=== PATIENT | female | born 1975 | race African-American/Black ===

== ENCOUNTER 2019-07-07 18:49 | Emergency (ER) | payer OTHER ==
[~2019-07-07] VITALS: Ht 157.5 cm; Wt 121.6 kg
[2019-07-07] MEDS ORDERED: ATACAND32 MG (19:03)
[2019-07-07] MEDS ORDERED: ATACAND32 MG PO (20:13)
[2019-07-07] MEDS ORDERED: MAXITROL EYE DRO5 ML OP (20:13)
== END 2019-07-07 21:24 | disposition home or self-care (01) ==
LOC: ER 18:49
DX: H10.13 Acute atopic conjunctivitis, bilateral (principal)

== ENCOUNTER 2021-12-01 21:32 | Emergency (ER) | payer OTHER ==
[~2021-12-01] VITALS: Ht 157.5 cm; Wt 122.5 kg
[~2021-12-01 21:32] MED LIST: ATACAND32 MG; ATACAND32 MG PO; MAXITROL EYE DRO5 ML OP
[2021-12-01] MEDS ORDERED: [UNRECOGNIZED DRUG - OTHER] (21:48)
== END 2021-12-02 01:39 | disposition home or self-care (01) ==
LOC: ER 21:32
DX: R42 Dizziness and giddiness (principal); I10 Essential (primary) hypertension